=== PATIENT | male | born 1975 | race African-American/Black ===

== ENCOUNTER → 2017-01-05 18:50 | Emergency (ER) | payer MEDICAID ==
[~2017-01-05 18:50] MED LIST: ALBU6.7H INH; LISI10TA3 PO; LORTA5 PO
[2017-01-05 18:54] VITALS: BP 184/117; PULSE 98; RESP 15; TEMP 98.1; O2SAT 97
== END | disposition left against medical advice (07) ==
LOC: NED 18:50
DX: R42 Dizziness and giddiness (principal); Z53.21 Procedure and treatment not carried out due to patient leaving prior to being seen by health care provider
CPT/HCPCS: 99281

== ENCOUNTER 2017-04-07 18:18 | Emergency (ER) | payer MEDICAID ==
[~2017-04-07] VITALS: Ht 175.3 cm; Wt 104.5 kg
[~2017-04-07 18:18] MED LIST changes: -LISI10TA3 PO
[2017-04-07 18:20] VITALS: BP 122/134; PULSE 85; RESP 20; TEMP 98.2; O2SAT 98
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
[2017-04-07] MEDS ORDERED: PROPARACAINE HCL 0.5% OPHT SOLN 15 ML BTL EACH EYE ONE (20:15)
[2017-04-07] MEDS ORDERED: cloNIDine HCL 0.1 MG TAB PO ONE (20:30)
[2017-04-07 21:30] VITALS: BP 224/132; PULSE 86; RESP 18; O2SAT 100
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
[2017-04-07] MEDS ORDERED: LISI10TA3 PO (22:09)
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
[2017-04-07 22:12] VITALS: BP 180/106; PULSE 82; RESP 18; O2SAT 99
== END 2017-04-07 22:19 | disposition home or self-care (01) ==
LOC: NEPD 18:18
DX: H20.9 Unspecified iridocyclitis (principal); I10 Essential (primary) hypertension; F17.200 Nicotine dependence, unspecified, uncomplicated
CPT/HCPCS: 70480; 99284